=== PATIENT | male | born 1945 | race Caucasian/White ===

== ENCOUNTER 2016-10-05 05:56 | Day surgery (SDC) | payer MEDICARE, BC ==
[2016-10-05] MEDS ORDERED: Dextrose 5%-Lactated Ringers 1,000 ML IV SCH (06:30)
[2016-10-05] MEDS ORDERED: fentaNYL 100 MCG/2 ML SDV ONE (06:57)
[2016-10-05] MEDS ORDERED: Midazolam 1 MG/ML 2 ML SDV ONE (06:57)
[2016-10-05] MEDS ORDERED: Propofol 200 MG/20 ML SDV ONE (06:58)
[2016-10-05 08:31] VITALS: BP 125/70
--- NOTE | 2016-10-07 14:31 | OR ---
DATE OF PROCEDURE: 10/05/2016 PREOPERATIVE DIAGNOSIS: History of colonic polyps. POSTOPERATIVE DIAGNOSES: 1. History of colonic polyps with no recurrent polypoid disease. 2. Limited left-sided colonic diverticulosis. OPERATIVE PROCEDURE: Flexible colonoscopy. ANESTHESIA: IV sedation. INDICATIONS FOR PROCEDURE: This is a 71-year-old presenting 5 years status post previous polyp excision from his transverse colon. Plan is to proceed with the colonoscopy with biopsy and/or polypectomy as indicated. Potential risks of the procedure including bleeding and perforation were discussed, and the patient wishes to proceed. DETAILS OF PROCEDURE: The patient was taken to the operating room and placed in the left lateral decubitus position. IV sedation was administered, after which the initial digital rectal exam was performed and it was unremarkable. Colonoscope was then passed into the rectum with retroflexion revealing uncomplicated hemorrhoidal columns. The scope was then eventually passed into the cecum. The prep was fairly good with there only being a small amount of liquid stool present. To that level, the patient was noted to have some uncomplicated diverticular disease on the left side. Apart from that, however, there were no areas of colitis and no polyps or other signs of neoplasia. The scope was then withdrawn, the above findings reconfirmed, and the procedure was then concluded. The patient's polyp removed 5 years ago was hyperplastic polyp, which was not premalignant per se. Given this, the next colonoscopy should be in 10 years, if at that time, when he is 81 years old, his health is otherwise in good condition. Tyrone Schwab MD /[id number]
== END 2016-10-05 08:40 | disposition home or self-care (01) ==
LOC: JP.SDS 05:56
PROVIDERS: ATTEND Surgery
DX: Z12.11 Encounter for screening for malignant neoplasm of colon (principal); Z86.010 Personal history of colon polyps; K57.30 Diverticulosis of large intestine without perforation or abscess without bleeding
CPT/HCPCS: G0105; J2250; J2704; J3010; J7042